=== PATIENT | female | born 1980 | race Caucasian/White ===

== ENCOUNTER 2018-09-04 07:48 | Day surgery (SDC) | payer OTHER ==
[2018-09-04 07:49] LABS: Specific Gravity 1.015 (1.005-1.030)
[2018-09-04 07:55] LABS: Protime INR 1.02
[2018-09-04] MEDS ORDERED: CEFAZOLIN SODIUM 1 GM/VIAL ONE ×2 (08:11→14:11)
[2018-09-04] MEDS ORDERED: NS 0.9% VIAL 20 ML ONE (08:11)
[2018-09-04] MEDS ORDERED: Mastisol Adhesive Liq ONE (08:12)
[2018-09-04] MEDS ORDERED: GENTAMICIN SULF 80 MG/2ML INJ ONE (08:12)
[2018-09-04] MEDS ORDERED: BACITRACIN 50000 UNIT VIAL ONE (08:12)
[2018-09-04] MEDS ORDERED: Ringers Lactate 1,000 ML IV ONE ×3 (08:12→08:24)
[2018-09-04] MEDS ORDERED: SCOPOLAMINE HYDROBROMIDE PATCH TD ONE (08:24)
[2018-09-04] MEDS ORDERED: CEFAZOLIN/SWI 1gm 1 GM/10 ML SYR ONE (08:24)
[2018-09-04] MEDS ORDERED: ONDANSETRON 4 MG/2 ML VIAL ONE ×2 (08:34→18:27)
[2018-09-04] MEDS ORDERED: PROPOFOL 200 MG/20 ML VIAL IV ONE (08:34)
[2018-09-04] MEDS ORDERED: LIDOCAINE 2% MPF 5 ML VIAL ONE (08:34)
[2018-09-04] MEDS ORDERED: DEXAMETHASONE 10 MG/ML VIAL ONE (08:34)
[2018-09-04] MEDS ORDERED: VECURONIUM 10 MG/VIAL IV ONE (08:34)
[2018-09-04] MEDS ORDERED: FENTANYL CITR 100 MCG/2 ML ONE ×3 (08:34→16:41)
[2018-09-04] MEDS ORDERED: MIDAZOLAM HCL 2 MG/2 ML INJ ONE (08:34)
[2018-09-04] MEDS ORDERED: ROCURONIUM 50 MG/5 ML VIAL IV ONE (08:35)
[2018-09-04] MEDS ORDERED: LANO/MINERAL OIL/PETRO 3.5 GM ONE (10:43)
[2018-09-04] MEDS ORDERED: MORPHINE 10 MG/ML VIAL ONE (10:58)
[2018-09-04] MEDS ORDERED: MEPERIDINE HCL 25 MG/0.5 ML ONE (10:58)
[2018-09-04] MEDS ORDERED: NA CHLORIDE 0.9% 100 ML IV ONE (11:01)
[2018-09-04] MEDS ORDERED: EPHEDRINE SULF 50 MG/ML VIAL ONE (11:35)
[2018-09-04] MEDS ORDERED: NEOSTIGMINE 1 MG/ML -10 ML VIAL ONE (15:02)
[2018-09-04] MEDS ORDERED: GLYCOPYRROLATE 0.2 MG/ML SYR ONE (15:02)
[2018-09-04] MEDS: HYDROMORPHONE HCL 1 MG/ML INJ ONE ×4 (15:39→16:08)
[2018-09-04] MEDS ORDERED: KETOROLAC 30 MG/ML INJ ONE (16:01)
[2018-09-04] MEDS ORDERED: PROMETHAZINE 25 MG/ML VIAL ONE (16:06)
[2018-09-04] MEDS: FENTANYL CITR 100 MCG/2 ML ONE ×2 (16:13→16:20)
[2018-09-04] MEDS ORDERED: HYDROCODONE/APAP 7.5/325 MG TAB ONE (16:36)
[2018-09-04] MEDS ORDERED: ALBUTEROL 2.5 MG/3 ML NEB SOL NEB ONE (17:04)
[2018-09-04] MEDS ORDERED: ALBUTEROL 2.5 MG/3 ML NEB SOL ONE (17:33)
[2018-09-04] MEDS ORDERED: ONDANSETRON 4 MG/2 ML VIAL IV ONE (18:16)
--- NOTE | 2018-09-05 02:33 | OP ---
Surgeon: Kevin Cornejo MD [id number] Architect: Smith. Preoperative Diagnosis: Bilateral breast enlargement and descent. Postoperative Diagnosis: Bilateral breast enlargement and descent. Procedure Performed: Reduction and lift. Anesthesia: General. Procedure In Detail: After satisfactory induction of general anesthesia, the chest was prepped with DuraPrep. Dry sterile drapes applied in the usual manner. A 5-cm template was used to outline the r ight and left areola. Then an incision was made around the areola in transverse inferior. The remai danyell skin was de-epithelialized with dermabrader or EpiCut. The flap was then elevated and a cephala d incision made. A 1.5 cm thickness flap elevated and continued toward the sternum, clavicle, anteri or axillary line. After this was done, an inferior incision was made and de-epithelized tissue was f ormed into a cone. Prior to conization excess breast tissue were removed, laterally and superiorly a nd laterally inferiorly. Conization was performed with 2-0 PDS sutures. The straps were elevated fr om the right breast at the 12 o'clock, 1:30 and 3 o'clock positions, mirror image on the opposite makayla e. The straps were woven in and out of the pectoralis major muscle, back to the base of the cone, ba ck to pectoralis muscle and back to the base of the cone and sewn to itself with 2-0 PDS. This was d one from 12 o'clock and 1:30 straps. The 3 o'clock strap was sewn over the sternum at 3 o'clock posi tion with 2-0 Ethibond. Mirror image was done on the opposite side. The wounds were stapled shut an d the patient was sat up. Asymmetries were corrected in terms of volume and . The skin wa s resected as needed and the patient put supine. A 10 KYRA drain was brought out of the axilla and sew n in place with 2-0 silk, and after excess tissue was cut off, the wound was closed in layers with 3- 0 Vicryl subcu, 3-0 PDS running subcuticular tied in the vertical meridian of both breasts. After th is was done, patient sat up. Site for new nipple-areolar complex was marked out. The tissue was cor ed out over a 5-cm template. Nipples delivered and sewn with interrupted 4-0 PDS followed by 4-0 PDS running subcuticular. Dressings consisting of tincture of benzoin, Steri-Strips,, 5 x 5's, fluffs, and Salazar wrap.. The patient tolerated the procedure well and returned to recovery. The amount remove d from the right breast was 108 g, left breast about 220. MARILYN/DEREK Voice ID: [id number] Report ID: [id number]
== END 2018-09-04 18:28 | disposition home or self-care (01) ==
LOC: OR 07:48
PROVIDERS: ATTEND Specialist
PROC: 0HSV0ZZ Reposition Bilateral Breast, Open Approach (ICD-10-PCS; 2018-09-04)
PROC: 0HBV0ZZ Excision of Bilateral Breast, Open Approach (ICD-10-PCS; principal; 2018-09-04 10:00)
DX: N64.81 Ptosis of breast (principal); N60.92 Unspecified benign mammary dysplasia of left breast; N60.91 Unspecified benign mammary dysplasia of right breast; N60.42 Mammary duct ectasia of left breast; N60.41 Mammary duct ectasia of right breast; N60.81 Other benign mammary dysplasias of right breast
CPT/HCPCS: 36415; 81025; 85610; 85730; 88305; 94640; J0690; J1100; J1170; J1580; J2175; J2250; J2405; J2550; J2704; J2710; J3010